=== PATIENT | female | born 1995 | race Caucasian/White ===

== ENCOUNTER → 2020-08-21 | Outpatient (CLI) | payer BC ==
--- NOTE | 2020-08-21 12:09 | US ---
EXAMINATION TYPE: US abdomen complete DATE OF EXAM: 08/21/2020 COMPARISON: NONE CLINICAL HISTORY: 25-year-old female R10.9 Abdominal pain. TECHNIQUE: Multiple sonographic images of the abdomen are obtained. FINDINGS: EXAM MEASUREMENTS: Liver Length: 13.3 cm Gallbladder Wall: .13 cm CBD: .3 cm Spleen: 9.9 cm Right Kidney: 11.7 x 2.9 x 4.2 cm Left Kidney: 10.9 x 4.3 x 4.1 cm Pancreas: wnl Liver: wnl Gallbladder: wnl Evidence for sonographic Browne's sign: No CBD: wnl Spleen: wnl Right Kidney: wnl Left Kidney: wnl Upper IVC: wnl Abd Aorta: wnl IMPRESSION: Unremarkable sonographic examination of the abdomen.
== END | disposition home or self-care (01) ==
LOC: RADUSWWP 08:36
PROVIDERS: ATTEND Family Medicine
DX: R10.9 Unspecified abdominal pain (principal)
CPT/HCPCS: 76700